=== PATIENT | male | born 1960 | race Caucasian/White ===

== ENCOUNTER 2023-02-20 17:02 | Emergency (ER) | payer BC ==
[2023-02-20] MEDS ORDERED: Dexamethasone 10 MG/ML VIAL ONE (17:49)
[2023-02-20] MEDS ORDERED: Ketorolac Tromethamine 30 MG/ML VIAL ONE (17:50)
== END 2023-02-20 17:50 | disposition home or self-care (01) ==
LOC: CSHERS 17:02
DX: M54.32 Sciatica, left side (principal)
CPT/HCPCS: 96372; 99283; J1100; J1885

== ENCOUNTER 2023-03-04 16:56 | Emergency (ER) | payer BC ==
[2023-03-04] MEDS ORDERED: Ketorolac Tromethamine 30 MG/ML VIAL ONE (18:21)
[2023-03-04] MEDS ORDERED: Ondansetron ODT 4 MG TAB ONE (19:47)
[2023-03-04] MEDS ORDERED: HYDROcodone/Acetaminophen 10/325 mg Tablet ONE (19:47)
[2023-03-04] MEDS ORDERED: predniSONE 20 MG TAB ONE (19:47)
== END 2023-03-04 19:20 | disposition home or self-care (01) ==
LOC: CSHERS 16:56
DX: M54.42 Lumbago with sciatica, left side (principal)
CPT/HCPCS: 72100; 96372; J1885; J7512; Q0162